=== PATIENT | female | born 1980 | race Caucasian/White ===

== ENCOUNTER 2019-11-13 13:45 | Outpatient (CLI) | payer BC ==
--- NOTE | 2019-11-13 14:27 | MMO ---
Bilateral MAMMO Bilat Diag DDI+PREETI. CLINICAL HISTORY: Patient is 39 years old and is seen for diagnostic exam and lump or thickening in the right breast. The patient has the following family history of breast cancer: mother, at age 65. The patient has no personal history of cancer. VIEWS: The views performed were: bilateral craniocaudal with tomosynthesis; bilateral mediolateral oblique with tomosynthesis; and bilateral mediolateral with tomosynthesis. FILMS COMPARED: The present examination has been compared to a prior imaging study performed at [facility] on 11/13/2019. This study has been interpreted with the assistance of computer-aided detection. MAMMOGRAM FINDINGS: The breasts are extremely dense, which may lower the sensitivity of mammography. Finding 1: There is an oval mass measuring 19 millimeters with circumscribed margins seen in the upper-outer region of the right breast. This corresponds to the palpable abnormality. 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 Finding 2: There is an oval mass measuring 12 millimeters with circumscribed margins seen in the outer region of the left breast. Sonography of this region demonstrates adjacent masses compatible with fibroadenomas. IMPRESSION: FINDING 1: MASS IN THE RIGHT BREAST IS PROBABLY BENIGN. FOLLOW-UP IN 6 MONTHS IS RECOMMENDED. THE PATIENT WAS ADVISED TO NOT DELAY FOLLOW UP IMAGING IF THERE IS CONCERNING INTERVAL CLINICAL CHANGE. THE RESULTS OF THIS EXAM WERE SENT TO THE PATIENT. ACR BI-RADS Category 3 - Probably benign finding - short interval follow-up suggested. [facility] will notify the patient of the need for additional imaging services. MAMMOGRAPHY NOTE: 1. A negative mammogram report should not delay a biopsy if a dominant of clinically suspicious mass is present. 2. Approximately 10% to 15% of breast cancers are not detected by mammography. 3. Adenosis and dense breasts may obscure an underlying neoplasm. Reported by: CORBY JIMENEZ MD Electonically Signed: [id number]
--- NOTE | 2019-11-13 14:39 | ULT ---
LIMITED BILATERAL BREAST ULTRASOUND: Date: 11/13/2019 PROVIDED CLINICAL HISTORY: Palpable right breast abnormality. Abnormal left mammogram. FINDINGS: Limited sonographic interrogation was performed of the right breast at the 10 o'clock position in the region of palpable and mammographic concern. There is a 1.8 cm circumscribed hypoechoic mass demonst rating smooth margins in this location. Limited sonographic interrogation of the 3 o'clock position of the left breast was performed in the r egion of mammographic concern. There are adjacent circumscribed, oval, smoothly marginated, wider hernán n tall masses, measuring 1.4 cm and 1.1 cm, respectively, adjacent to one another at this location. IMPRESSION: 1. Right breast palpable abnormality demonstrates sonographic features most compatible with fibroade noma. 6 month follow-up right breast ultrasound is recommended. Patient was advised to not delay foll ow-up imaging if there is concerning interval clinical change. BI-RADS Category 3. 2. Nonpalpable masses compatible with fibroadenoma at the 3 o'clock position of the left breast. BI- RADS Category 2. POS: OFF
== END 2019-11-13 13:46 | disposition home or self-care (01) ==
LOC: BICMAMMO 13:45
PROVIDERS: ATTEND Nurse Practitioner Family
DX: N63.13 Unspecified lump in the right breast, lower outer quadrant (principal)
CPT/HCPCS: 77066; G0279